=== PATIENT | male | born 1955 | race Caucasian/White ===

== ENCOUNTER → 2017-01-15 | Outpatient (CLI) | payer BC ==
[~2017-01-15] MED LIST: COUMADIN1 MG PO; ESCITALOPRAM OX20 MG PO; FERROUS SULFAT325 MG PO; FOLIC ACID0.8 MG PO; Folic Acid PO; LEUCOVORIN CALCI5 MG PO; METHOTREX SQ; NAPROXEN375 MG PO; OCUVITE TABLET1 EACH PO; OSTEO BI-FLEX1 EAC1 PO; OXYCODONE HCL5 MG PO; SPIRIVA1 INHALATI IH; VENTOLIN HFA18 GM IH; [UNRECOGNIZED DRUG - OTHER] PO
== END | disposition home or self-care (01) ==
LOC: CDC 10:59
DX: S83.231A Complex tear of medial meniscus, current injury, right knee, initial encounter (principal); S83.281A Other tear of lateral meniscus, current injury, right knee, initial encounter; M25.561 Pain in right knee; M25.461 Effusion, right knee; M17.11 Unilateral primary osteoarthritis, right knee; G47.33 Obstructive sleep apnea (adult) (pediatric)
CPT/HCPCS: 93000

== ENCOUNTER 2017-01-31 12:36 | Day surgery (SDC) | payer BC ==
[~2017-01-31] VITALS: Ht 182.9 cm; Wt 120.2 kg
[~2017-01-31 12:36] MED LIST changes: +ARAVA10 MG PO; +CELEBREX200 MG PO; +FOLIC ACID1 MG PO; +LEXAPRO20 MG PO; +OSTEO BI-FLEX1 EAC4 PO; +[UNRECOGNIZED DRUG - CODE] SC
[2017-01-31 13:01] VITALS: BP 154/82
[2017-01-31 13:10] LABS: HEMATOCRIT 42.8 % (38.0-50.0); MCV 87.3 FL (86-99); MEAN PLAT.VOLUME 9.2 uM^3 (9.0-12.4); PLATELET COUNT 279 K/uL (156-360); RBC DIS.WIDTH-CV 13.8 % (11.8-14.6); RBC DIS.WIDTH-SD 43.5 % (39-53); WHITE BLOOD COUNT 7.2 K/uL (4.1-10.2)
[2017-01-31 16:32] VITALS: BP 143/77
[2017-01-31 17:32] VITALS: BP 161/77
== END 2017-01-31 17:44 | disposition home or self-care (01) ==
LOC: SDC 12:36
PROVIDERS: Orthopaedic Surgery
DX: S83.241A Other tear of medial meniscus, current injury, right knee, initial encounter (principal); S83.281A Other tear of lateral meniscus, current injury, right knee, initial encounter; X58.XXXA Exposure to other specified factors, initial encounter; M94.261 Chondromalacia, right knee; J44.9 Chronic obstructive pulmonary disease, unspecified; M17.11 Unilateral primary osteoarthritis, right knee; Z87.891 Personal history of nicotine dependence
CPT/HCPCS: 85027; J0131; J2250; J2795; J3010